=== PATIENT | female | born 2000 | race Two or more races ===

== ENCOUNTER 2018-04-03 04:45 | Day surgery (SDC) | payer MEDICAID ==
[~2018-04-03] VITALS: Ht 162.6 cm; Wt 71.7 kg
[2018-04-03] MEDS ORDERED: LACTATED RINGER'S 1,000 ML IV SCH ×2 (05:00→11:22)
[2018-04-03 08:34] LABS: Basophils # (auto) 0 uL; Basophils % (auto) 0.4 % (0.0-2.0); Eosinophils # (auto) 0.1 uL; Eosinophils % (auto) 1.5 % (0.0-7.0); Hematocrit 38.2 % (36.0-46.0); Hemoglobin 12.9 g/dL (12.2-16.2); Lymphocytes # (auto) 1.9 uL; Lymphocytes % (auto) 26.9 % (10.0-50.0); Mean Corpuscular Hemoglobin 31.5 pg (28.0-32.0); Mean Corpuscular Hgb Conc. 33.9 g/dL (32.0-36.0); Mean Corpuscular Volume 92.9 fL (80.0-100.0); Monocytes # (auto) 0.5 uL; Monocytes % (auto) 7.9 % (0.0-12.0); Neutrophils # (auto) 4.4 uL; Neutrophils % (auto) 63.3 % (37.0-80.0); Nucleated Red Blood Cells % 0.1 %; Platelet Count (auto) 211 10^3/uL (140-450); Red Blood Cells 4.11 10^6/uL (4.0-5.20); Red Cell Distribution Width 13.5 % (11.8-14.3); White Blood Cell 6.9 10^3/uL (4.4-10.8)
[2018-04-03 08:44] LABS: INR 0.93 (0.9-1.15)
[2018-04-03 08:55] LABS: Albumin 3.4 g/dL (3.4-5.0); Calcium 8.6 mg/dL (8.5-10.1); Potassium 3.8 mmol/L (3.5-5.1)
[2018-04-03 08:57] LABS: BUN/Creatinine Ratio 14.5
[2018-04-03 08:59] LABS: Bilirubin, Total 0.8 mg/dL (0.2-1.0)
[2018-04-03] MEDS ORDERED: ceFAZolin 1GM/50ML 50 ML IV ONE (09:59)
[2018-04-03 10:14] LABS: Urine Bacteria FEW /hpf (None Seen); Urine Blood Negative /uL (Negative); Urine Specific Gravity 1.017 (1.001-1.035); Urine WBC 1 /hpf (0 - 5)
[2018-04-03] MEDS ORDERED: fentaNYL CITRATE 100 MCG/2 ML VL ONE (10:26)
[2018-04-03] MEDS ORDERED: MIDAZOLAM HCL 1MG/1ML-2 ML VIAL ONE (10:26)
[2018-04-03] MEDS ORDERED: METOCLOPRAMIDE HCL 5MG/ml INJ 2ml VIAL ONE (10:27)
[2018-04-03] MEDS ORDERED: LIDOCAINE 2% (LOCAL ANESTH.) PF 5ml SDV ONE (10:27)
[2018-04-03] MEDS ORDERED: DEXAMETHASONE SOD PHOS 10MG/1ML VIAL INJ ONE (10:27)
[2018-04-03] MEDS ORDERED: PROPOFOL 10 MG/ML 20 ML IV ONE (10:27)
[2018-04-03] MEDS ORDERED: ONDANSETRON HCL 4 MG/2 ML VIAL ONE (10:27)
[2018-04-03] MEDS ORDERED: OXYTOCIN 10UNIT/ML 1ML VIAL ONE (11:04)
[2018-04-03] MEDS ORDERED: ONDANSETRON HCL 4 MG/2 ML VIAL IV PRN (11:30)
[2018-04-03 12:30] VITALS: BP 109/72
== END 2018-04-03 12:30 | disposition home or self-care (01) ==
LOC: ER 04:46 → OR 1 04:47 → ER 08:10 → OR 1 08:10
PROVIDERS: ATTEND Specialist
DX: O02.1 Missed abortion (principal); O36.4XX0 Maternal care for intrauterine death, not applicable or unspecified; F10.99 Alcohol use, unspecified with unspecified alcohol-induced disorder; Z90.49 Acquired absence of other specified parts of digestive tract; Z3A.12 12 weeks gestation of pregnancy; Z37.9 Outcome of delivery, unspecified
CPT/HCPCS: 59820; J2590; J2765; J3010; 36415; 80053; 81001; 84702; 85025; 85610; 85730; 86850; 86900; 86901; J0690; J1100; J2001; J2250; J2405; J2704